=== PATIENT | male | born 1965 | race Two or more races ===

== ENCOUNTER 2022-07-23 10:33 | Emergency (ER) | payer MEDICAID ==
[~2022-07-23] VITALS: Ht 177.8 cm; Wt 77.8 kg
[2022-07-23 12:58] VITALS: BP 140/89
[2022-07-23] MEDS ORDERED: DexAMETHasone SOD PHOS 10MG/1ML VIAL INJ IM ONE (14:00)
[2022-07-23 14:48] LABS: Urine Bacteria NONE SEEN /hpf (None Seen); Urine Blood Negative /uL (Negative); Urine Mucus FEW (None Seen); Urine Specific Gravity 1.021 (1.001-1.035); Urine WBC 1 /hpf (0 - 3)
[2022-07-23] MEDS ORDERED: ACET-1158 PO (16:35)
[2022-07-23] MEDS ORDERED: ALBU108A5 IN (16:35)
[2022-07-23] MEDS ORDERED: BENZ100C19 PO (16:35)
[2022-07-23] MEDS ORDERED: LORA-483 GT (16:35)
== END 2022-07-23 16:45 | disposition home or self-care (01) ==
LOC: ER 10:33
DX: J06.9 Acute upper respiratory infection, unspecified (principal); Z20.822 Contact with and (suspected) exposure to COVID-19
CPT/HCPCS: 36415; 71046; 81001; 87426; 87804; 96372; 99284; J1100